=== PATIENT | male | born 2000 | race Caucasian/White ===

== ENCOUNTER 2024-12-21 14:29 | Emergency (ER) | payer OTHER, SELFPAY ==
[2024-12-21 14:38] VITALS: BP 156/85; PULSE 77; RESP 16; TEMP 36.6; O2SAT 98; BMI 27.7
--- NOTE | 2024-12-21 14:42 | EKG_ITS ---
[facility]
--- NOTE | 2024-12-21 14:42 | DI.RAD.S_ITS ---
PROCEDURE: XR CHEST 1V
[2024-12-21 14:52] LABS: Add Manual Diff / Slide Review NO; Hematocrit 45.1 % (41-53); Hemoglobin 15.8 g/dL (13.5-17.5); Lymphocytes Absolute Auto 1900 /uL (1100-4500); Mean Corpuscular HGB Conc 35.1 % (30-36); Mean Corpuscular Hemoglobin 31.0 PG (26-34); Mean Corpuscular Volume 88.4 fL (80-100); Platelet Count 238 X10^3/uL (150-400)
[2024-12-21] MEDS: ASPIRIN 81 MG CHEW TAB 324 MG PO (14:53)
[2024-12-21 14:59] LABS: INR 1.1 (0.9-1.3); Prothrombin Time 12.4 SECONDS (9.4-12.5)
[2024-12-21 15:02] LABS: PTT Partial Thromboplastin Tim 33 SECONDS (25.1-36.5)
[2024-12-21 15:03] LABS: Alanine Aminotransferase 29 IU/L (<50); Albumin 4.8 g/dL (3.5-5.0); Albumin Globulin Ratio 1.5 (1.0-2.8); Alkaline Phosphatase 67 U/L (38-126); Blood Urea Nitrogen 16 mg/dL (9-20); Calcium 9.3 mg/dL (8.4-10.2); Carbon Dioxide 29 mmol/L (22-32); Chloride 101 mmol/L (98-107); Creatine Kinase 161 U/L (55-170); Estimated Glomerular Filt Rate > 60 mL/min (>60); Globulin 3.2 g/dL (1.7-4.1); Glucose 89 mg/dL (70-99); HEMOLYSIS < 15 (0-50); Lipase 86 U/L (23-300); Magnesium 1.7 mg/dL (1.6-2.3); Potassium 4.5 mmol/L (3.4-5.1); Sodium 140 mmol/L (137-145); Total Protein 8.0 g/dL (6.3-8.2)
[2024-12-21 15:15] LABS: NT-proBNP (BNP-Adult 18+) < 20 pg/mL (<125); Troponin I < 0.012 ng/mL (0.01-0.034)
--- NOTE | 2024-12-21 15:49 | ED_ITS ---
<Statement entered by Barry Kumar, DO - 12/21/24 21:56>
--- NOTE | 2024-12-21 15:49 | ED.CHESTPAIN ---
HPI - Chest Pain General Chief Complaint: Chest Pain Stated Complaint: chest pain comes and goes, weakness in arms Time Seen by Provider: 12/21/24 14:42 History of Present Illness HPI narrative: 24-year-old male here today for left-sided chest pain that has been off and on for the last 2 days. States that yesterday he noticed a tingling sensation in his entire left arm and some pain that radiated to his left shoulder which concerned him. He has never had chest pain before. He does not have any cardiac or pulmonary history or any other significant medical history. No family members with cardiac history at a young age. States today he just feels fatigued and little unsteady at times but is still able to perform all his ADLs. He denies any shortness of breath. He denies headaches, dizziness, palpitations. The tingling in his arm has resolved. He works as a performance manager and denies any known trauma or precipitating event or factor that would cause a chest wall injury. He does have chronic neck pain from his job and he is very active, with sometimes strenuous activities for his job. He has not taken any medication so far. He denies any anxiety or hyperventilation during these episodes. Related Data Allergies Allergy/AdvReac Type Severity Reaction Status Date / Time No Known Drug Allergies Allergy Verified 12/21/24 14:38 Review of Systems Review of Systems ROS Unobtainable: All systems reviewed & are unremarkable except as noted in HPI and below Exam Narrative Exam Narrative: GENERAL: [24] year old patient appears stated age. Well-developed patient, in no acute distress. Comfortable, speaking in full sentences, not anxious. HEAD: Atraumatic. Normocephalic. EYES: Pupils equal round and reactive. Extraocular motions intact. No scleral icterus. No injection or drainage. ENT: Nose without bleeding, purulent drainage. Throat without erythema, tonsillar hypertrophy or exudate. Airway patent. NECK: Trachea midline. Non tender CARDIOVASCULAR: Regular rate and rhythm without murmurs, gallops, or rubs. Chest wall with some mild tenderness to palpation under the left nipple area but no mass pinpoint tenderness noted. RESPIRATORY: Clear to auscultation. Breath sounds equal bilaterally. No wheezes, rales, or rhonchi. GASTROINTESTINAL: Abdomen soft, non-tender, nondistended. EXTREMITIES: No edema or joint tenderness. NEURO: AOx3. SKIN: No rash or erythema of visible areas Initial Vital Signs Initial Vital Signs: Vital Signs Temperature 97.8 F 12/21/24 14:38 Pulse Rate 77 12/21/24 14:38 Respiratory Rate 16 12/21/24 14:38 Blood Pressure 156/85 H 12/21/24 14:38 Pulse Oximetry 98 12/21/24 14:38 Oxygen Delivery Method Room Air 12/21/24 14:38 Course Orders Ordered: ED Orders 12/21/24 14:42 XR chest 1V Stat EKG-12 Lead Stat 12/21/24 14:46 Complete Blood Count AUTO DIFF Stat Comprehensive Metabolic Panel Stat Lipase Stat Magnesium Stat NT-proBNP (BNP-Adult 18+) Stat PTT Partial Thromboplastin Pasha Stat Prothrombin Time INR Stat Troponin & CK Cardiac Panel Stat Discontinued Medications Aspirin (Aspirin 81 Mg Chew Tab) 324 mg PO NOW ONE Stop: 12/21/24 14:42 Last Admin: 12/21/24 14:53 Dose: 324 mg Documented By: [place] Vital Signs Vital signs: Vital Signs - 8 hr 12/21/24 14:38 Temperature 97.8 F Pulse Rate 77 Respiratory Rate 16 Blood Pressure 156/85 H Pulse Oximetry 98 Oxygen Delivery Method Room Air MDM - Chest Pain Lab Data 12/21/24 14:46 12/21/24 14:46 Labs: Lab Results 12/21/24 Range/Units 14:46 WBC 7.1 (4.5-11.0) X10^3/uL RBC 5.10 (4.5-5.9) X10^6/uL Hgb 15.8 (13.5-17.5) g/dL Hct 45.1 (41-53) % MCV 88.4 (80-100) fL MCH 31.0 (26-34) PG MCHC 35.1 (30-36) % RDW 12.3 (11.6-14.8) % Plt Count 238 (150-400) X10^3/uL Neut % (Auto) 62.1 (50-75) % Lymph % (Auto) 27.0 (25-40) % Sherman % (Auto) 7.2 (3-14) % Eos % (Auto) 3.2 (2-4) % Baso % (Auto) 0.5 (0-2) % Neut # (Auto) 4400 (6737-6738) /uL Lymph # (Auto) 1900 (1238-0847) /uL Sherman # (Auto) 500 (0-900) /uL Eos # (Auto) 200 (0-450) /uL Baso # (Auto) 0 (0-100) /uL PT 12.4 (9.4-12.5) SECONDS INR 1.1 (0.9-1.3) APTT 33 (25.1-36.5) SECONDS Sodium 140 (137-145) mmol/L Potassium 4.5 (3.4-5.1) mmol/L Chloride 101 (98-107) mmol/L Carbon Dioxide 29 (22-32) mmol/L BUN 16 (9-20) mg/dL Creatinine 1.08 (0.66-1.25) mg/dL Estimated GFR > 60 (>60) mL/min BUN/Creatinine Ratio 14.8 (6-22) Glucose 89 (70-99) mg/dL Calcium 9.3 (8.4-10.2) mg/dL Magnesium 1.7 (1.6-2.3) mg/dL Total Bilirubin 0.6 (0.2-1.3) mg/dL AST 36 (17-59) IU/L ALT 29 (<50) IU/L Alkaline Phosphatase 67 (38-126) U/L Total Creatine Kinase 161 (55-170) U/L Troponin I < 0.012 (0.01-0.034) ng/mL NT-Pro-B Natriuret Pep < 20 (<125) pg/mL Total Protein 8.0 (6.3-8.2) g/dL Albumin 4.8 (3.5-5.0) g/dL Globulin 3.2 (1.7-4.1) g/dL Albumin/Globulin Ratio 1.5 (1.0-2.8) Lipase 86 (23-300) U/L Imaging Data Chest x-ray: Radiologist's Impression: [address] [address] XRay Report Signed Patient: Suraj Chawla MR#: [id number] : 2000 Acct:[id number] Age/Sex: 24 / M Date of Service: 12/21/24 Loc: ED Accession Number: [id number] Procedure: XR chest 1V Ordering Provider: Jami Ortiz PA-C PROCEDURE: XR CHEST 1V INDICATIONS: Chest Pain TECHNIQUE: One view of the chest was acquired. COMPARISON: None. FINDINGS: Surgical changes and devices: None. Lungs and pleura: Lungs are clear. No pleural effusions or pneumothorax. Mediastinum: Mediastinal contours appear normal. Heart size is normal. Bones and chest wall: No suspicious bony lesions. Overlying soft tissues appear unremarkable. IMPRESSION: No acute cardiopulmonary abnormality is seen. Dictated by: Tammy Conte M.D. on 12/21/2024 at 14:37 Approved by: Tammy Conte M.D. on 12/21/2024 at 14:38 ECG Data Interpretation: [1448] EKG is normal sinus rhythm rate [81] and free of any signs of ischemia or ectopy. No ST segmental elevation or depression. No T wave inversions. also reviewed by Barry Kumar MD MDM Narrative Medical decision making narrative: Multiple etiologies for patient's symptoms considered including, but not limited to: Chest wall pain, costochondritis, anxiety, pneumonia, cardiac chest pain Patient is 24 years old with no past medical history, here for left-sided chest pain with radiation to the left shoulder and some tingling in his left arm yesterday. The tingling has resolved. This patient has no cardiac risk factors and his EKG and chest x-ray are normal as well as all his blood work. Patient does have some mild tenderness of the left chest wall and he has a strenuous job as a performance manager. We discussed possibility of costochondritis or other chest wall related chest pain as well as his chronic neck pain causing the tingling sensation in his arm. He does not appear to have any cardiac cause of chest pain at this time. We discussed anti-inflammatories for the chest wall pain and monitoring his symptoms. If they are persistent he needs to follow up with his PCP to discuss further. Patient understands and agrees with this plan. Findings and discharge diagnosis discussed with patient/family followed by verbalization of understanding Return precautions discussed with patient/family whom verbalize understanding of diagnosis and plan Discharge Plan Departure Patient Disposition: Home Clinical Impression: Chest pain Qualifiers: Chest pain type: other chest pain Qualified Code(s): R07.89 - Other chest pain Instructions: DI for Costochondritis, DI for Chest Pain Activity Restrictions/Additional Instructions: Thank you for choosing us to care for you today. You were seen for chest pain and your blood work, EKG, and chest x-ray are all normal. Although this does not completely rule out any heart related cause of chest pain, it does ensure that you are not experiencing any acute problems with your heart at this time. It is possible that your pain is related to inflammation in your chest wall and the numbness and tingling in her arm could be related to your chronic neck pain. Please take anti-inflammatories (ibuprofen) as needed for the pain in your chest over the next 3-5 days. You may also use a lidocaine patch on the area. If your symptoms are persistent, please follow up with your primary care physician. If you have any new or worsening symptoms such as difficulty breathing, the chest pain is worsening, or you're otherwise feeling worse in any way please return for re-evaluation Stand Alone Forms: Patient Portal/API
[2024-12-21 16:03] VITALS: BP 137/74; PULSE 66; RESP 16; O2SAT 99
== END 2024-12-21 16:03 | disposition home or self-care (01) ==
PROVIDERS: Emergency Provider Physician Assistant
DX: R07.89 Other chest pain (principal)
CPT/HCPCS: 36415; 71045; 80053; 82550; 83690; 83735; 83880; 84484; 85025; 85610; 85730; 93005; 99283; 99284